=== PATIENT | female | born 1995 | race Caucasian/White ===

== ENCOUNTER → 2024-01-28 12:39 | Outpatient (CLI) | payer OTHER, MEDICAID, SELFPAY ==
[2024-01-28 13:22] LABS: Appearance Urine UA CLEAR; Bilirubin Urine UA NEGATIVE (NEGATIVE); Color Urine UA YELLOW; Glucose Urine UA NEGATIVE (Negative); Ketones Urine UA NEGATIVE (NEGATIVE); Leukocyte Esterase Urine UA 1+ (NEGATIVE); Nitrite Urine UA NEGATIVE (Negative); Occult Blood Urine UA NEGATIVE (Negative); Protein Urine UA NEGATIVE (Negative); Urobilinogen Urine UA 0.2 E.U./dL (0.2)
[2024-01-28 13:33] LABS: Bacteria Urine Occasional (0-1); RBC Urine 1-5/HPF (0-5/HPF); Squamous Epithelial Cell Urine 1-5 /HPF (0-5/HPF); Urine Volume 10mL (spun); WBC Urine 5-10/HPF (0-5/HPF)
[2024-01-28 13:37] LABS: Add Manual Diff / Slide Review NO; Basophils Absolute Auto 0 /uL (0-100); Basophils Percent Auto 0.3 % (0-2); Eosinophils Absolute Auto 200 /uL (0-450); Eosinophils Percent Auto 2.1 % (2-4); Hematocrit 33.8 % (36-46); Hemoglobin 11.1 g/dL (12.0-16.0); Lymphocytes Absolute Auto 1500 /uL (1100-4500); Mean Corpuscular HGB Conc 32.8 % (30-36); Mean Corpuscular Hemoglobin 26.3 PG (26-34); Monocytes Absolute Auto 700 /uL (0-900); Monocytes Percent Auto 7.5 % (3-14); Neutrophils Absolute Auto 7400 /uL (1500-7000); Neutrophils Percent Auto 75.1 % (50-75); Platelet Count 288 X10^3/uL (150-400); Red Blood Cell Count 4.22 X10^6/uL (4.0-5.2); Red Cell Distribution Width 16.4 % (11.6-14.8); White Blood Cell Count 9.9 X10^3/uL (4.5-11.0)
[2024-01-28 17:37] LABS: Hepatitis B Surface Antigen NEGATIVE s/c (NEGATIVE)
[2024-01-28 17:41] LABS: HIV 1 & 2 Ab/Ag 4th Gen Combo NEGATIVE (NEGATIVE); Hep C Virus Ab w/Reflex Quant NEGATIVE s/c (NEGATIVE)
[2024-01-29 05:41] LABS: RPR Screen Non Reactive (Non Reactive)
[2024-01-29 09:36] LABS: Varicella IgG Antibody 1151 index (Immune >165)
== END ==
LOC: LAB 12:41
PROVIDERS: Referring Provider Family Medicine; Visit Provider Family Medicine
DX: Z34.00 Encounter for supervision of normal first pregnancy, unspecified trimester (principal)
CPT/HCPCS: 80055; 81003; 81015; 86787; 86803; 86850; 86900; 86901; 87086; 87389

== ENCOUNTER → 2024-03-24 11:18 | Outpatient (CLI) | payer OTHER, MEDICAID, SELFPAY | PROVIDERS: Referring Provider Family Medicine; Visit Provider Family Medicine | DX: Z78.9 Other specified health status (principal) | CPT/HCPCS: 87210 ==

== ENCOUNTER → 2024-03-24 11:49 | Outpatient (CLI) | payer OTHER, MEDICAID, SELFPAY ==
[2024-03-26 21:07] LABS: AFP, Serum 34.4 ng/mL (.); Calc Gestational Age EDD (.); Estriol, Free 1.05 ng/mL (.); Inhibin A, Dimeric 124.15 pg/mL (.); Inhibin A, MoM 0.81 (.); Maternal Ethnicity Caucasian (.); Maternal Weight 165 lbs (.); Number of Fetuses No (.); OSBR Risk 1 IN 10000 (.); Results Report (.); Test Results *Screen Negative* (.); hCG, MoM 0.67 (.); hCG, Serum 21581 mIU/mL (.)
== END ==
PROVIDERS: Referring Provider Family Medicine; Visit Provider Family Medicine
DX: Z34.00 Encounter for supervision of normal first pregnancy, unspecified trimester (principal); Z78.9 Other specified health status
CPT/HCPCS: 36415; 82105; 82677; 84702; 86336; 87210

== ENCOUNTER → 2024-04-07 10:21 | Outpatient (CLI) | payer OTHER, MEDICAID, SELFPAY ==
--- NOTE | 2024-04-07 10:23 | DI.US.S_ITS ---
PROCEDURE: US OB >= 14 WEEKS FETUS INDICATIONS: anatomy OUTSIDE/PRIOR DATING DATA: LMP-based estimated date of delivery (LESLY): 08/27/2024. First dating scan (date and location): 01/28/2024. Estimated date of delivery (LESLY) from first dating scan: 09/02/2024. The calculations are made using the working LESLY of 09/02/2024. TECHNIQUE: Real-time scanning was performed of the fetus, with image documentation and biometric measurements. Endovaginal scanning: No COMPARISON: None. FINDINGS: General: A single living intrauterine gestation is present. Presentation: Breech. Placenta: Placental position is anterior , without previa. Amniotic fluid index: 6.2 cm, normal range is 5-24 cm. Single deepest vertical pocket is 5.6 cm. heart rate: 145 beats per minute. Maternal cervical canal: 3.3 cm long. Normal lower limit is 2.5 cm. biometrics: Biparietal diameter: 4.6 cm, 20 week 0 day Head circumference: 16.8 cm, 19 week 3 day Abdominal circumference: 15.4 cm, 20 week 4 day Femur length: 2.9 cm, 18 week 5 day Clinically estimated gestational age: 18 week 6 day Composite gestational age from present scan: 19 week 5 day Estimated weight and percentile: 3 in 10 g, 91 percentile Anatomic survey: Neuro: Ventricles are non-dilated at less than 10 mm. Cisterna magna is normal at 3-11 mm. Cerebellum is normal in size and morphology. Nuchal skin fold: Normal at less than 6 mm between 14-21 weeks gestational age. Face: Nose and lips, facial profile are normal. Spine: No evidence for spina bifida. Heart: 4-chambered heart is present, with normal ventricular outflow tracts. Diaphragm: Diaphragm is intact. Stomach: Left-sided stomach is present. Kidneys: No hydronephrosis. Normal is less than 5 mm in 2nd trimester, less than 7 mm in 3rd trimester. Cord: 3-vessel cord has orthotopic insertion. Bladder: Normal in size. Extremities: All 4 extremities identified. IMPRESSION: Single live intrauterine consistent with 19 week 5 day gestation. Normal anatomic survey Approved by: Constantine Allen M.D. on 04/08/2024 at 11:30
== END ==
PROVIDERS: PCP Family Medicine; Referring Provider Family Medicine; Visit Provider Family Medicine
DX: Z34.02 Encounter for supervision of normal first pregnancy, second trimester (principal); Z3A.19 19 weeks gestation of pregnancy
CPT/HCPCS: 76811

== ENCOUNTER → 2024-04-25 10:08 | Outpatient (CLI) | payer OTHER, MEDICAID, SELFPAY ==
[2024-04-25 13:02] LABS: GTT (PREG) 1 Hour PP 50gm Dose 84 mg/dL (76-139)
== END ==
PROVIDERS: PCP Family Medicine; Referring Provider Family Medicine; Visit Provider Family Medicine
DX: Z34.00 Encounter for supervision of normal first pregnancy, unspecified trimester (principal)
CPT/HCPCS: 36415; 82950

== ENCOUNTER 2024-05-14 10:45 | Observation (INO) | payer OTHER, SELFPAY ==
--- NOTE | 2024-05-14 11:31 | DI.US.S_ITS ---
PROCEDURE: US OB LIMITED INDICATIONS: BLEEDING, CRAMPING OUTSIDE/PRIOR DATING DATA: Last menstrual period (LMP): Not available LMP-based estimated date of delivery (LESLY): 08/27/2024 First dating scan (date and location): 01/28/2024 Estimated date of delivery (LESLY) from first dating scan: 09/02/2024 The calculations are made using the working LESLY of 09/02/2024. TECHNIQUE: Real-time scanning was performed of the fetus for biophysical profile, with image documentation. Endovaginal scanning: Not performed COMPARISON: Located within [facility], OB >= 14 WEEKS FETUS, 04/07/2024, 10:28. FINDINGS: General: A single living intrauterine gestation is present. Presentation: Vertex Placenta: Placental position is anterior, without previa. Amniotic fluid index: 14.5 cm, normal range is 5-24 cm. Single deepest vertical pocket is 5.4 cm. heart rate: 155 beats per minute. Maternal cervical canal: Closed and measures 4.1 cm long. Normal lower limit is 2.5 cm. Clinically estimated gestational age: 24 weeks, 1 day. IMPRESSION: 1. Single live intrauterine gestation with fetus in vertex presentation. heart rate is 155 beats per minute. Normal ADAM at 14.5 cm. 2. Placenta location is anterior, no placenta previa. No evidence of abruption. We strive to produce accurate, complete, and clear reports of imaging services. To assist us in improving patient care, this report was composed using standard report templates and voice recognition software. Therefore, it may contain abnormal punctuation, insertions and/or omissions. Occasional wrong-word or sound-alike substitutions may occur. Though we review the report and make efforts to correct it, we do recommend that the report be read carefully in proper context to recognize any text inaccuracies. Dictated by: Son Chery M.D. on 05/14/2024 at 12:17 Approved by: Son Chery M.D. on 05/14/2024 at 12:19
[2024-05-14 12:17] LABS: Appearance Urine UA CLEAR; Bilirubin Urine UA NEGATIVE (NEGATIVE); Color Urine UA YELLOW; Glucose Urine UA NEGATIVE (Negative); Ketones Urine UA NEGATIVE (NEGATIVE); Leukocyte Esterase Urine UA 1+ (NEGATIVE); Nitrite Urine UA NEGATIVE (Negative); Occult Blood Urine UA 3+ (Negative); Protein Urine UA NEGATIVE (Negative); Specific Gravity Urine UA 1.015 (1.000-1.035); Urobilinogen Urine UA 0.2 E.U./dL (0.2)
[2024-05-14 12:28] LABS: pH Urine UA 7.5 (4.5-8.0)
[2024-05-14 12:33] LABS: Bacteria Urine Few (2-10); Culture Indicated Urine Specimen Cultured; RBC Urine 10-30/HPF (0-5/HPF); Squamous Epithelial Cell Urine 1-5 /HPF (0-5/HPF); Urine Volume 10mL (spun); WBC Urine 1-5/HPF (0-5/HPF)
== END 2024-05-14 13:03 | disposition home or self-care (01) ==
PROVIDERS: Admitting Provider Family Medicine; PCP Family Medicine; Referring Provider Family Medicine; Visit Provider Family Medicine
DX: O46.92 Antepartum hemorrhage, unspecified, second trimester (principal); Z3A.24 24 weeks gestation of pregnancy
CPT/HCPCS: 59025; 76815; 81001; 87077; 87086; 87147; G0378; G0379

== ENCOUNTER → 2024-05-30 10:48 | Outpatient (CLI) | payer OTHER, SELFPAY | PROVIDERS: PCP Family Medicine; Visit Provider Family Medicine | DX: R39.9 Unspecified symptoms and signs involving the genitourinary system (principal) | CPT/HCPCS: 87086 ==

== ENCOUNTER → 2024-06-20 11:36 | Outpatient (CLI) | payer OTHER, SELFPAY ==
[2024-06-20 13:25] LABS: GTT (PREG) 1 Hour PP 50gm Dose 113 mg/dL (76-139)
== END ==
LOC: LAB 11:37
PROVIDERS: Family Provider Family Medicine; PCP Family Medicine; Referring Provider Family Medicine; Visit Provider Family Medicine
DX: Z34.00 Encounter for supervision of normal first pregnancy, unspecified trimester (principal)
CPT/HCPCS: 36415; 82950

== ENCOUNTER → 2024-07-14 10:45 | Outpatient (RCR) | payer OTHER, SELFPAY ==
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
--- NOTE | 2024-06-18 10:43 | PT.OTN ---
Current Diagnoses Stiffness of right hip, not elsewhere classified (06/18/24) Stiffness of left hip, not elsewhere classified (06/18/24) Low back pain, unspecified (06/18/24) Other abnormalities of gait and mobility (06/18/24) Weakness (06/18/24) Physical Therapy Treatment Note PT-OP-A Visit Information Start: 06/16/24 10:44 Freq: Status: Active Protocol: Document 06/18/24 09:51 NM (Rec: 06/18/24 10:42 NM [id number]) Out-Patient Physical Therapy Visit Information Visit Information Visit Type Treatment Note Visit Note 24 visits Visit Start Time 09:51 Visit Stop Time 10:30 Visit Number 07/14 Evaluation Information Evaluation Date 06/16/24 Precautions Precautions 3rd trimester of - minimize time in supine and monitor for symptoms, no modalities except tape, use pillow PT-OP-B Current Condition Start: 06/16/24 10:44 Freq: Status: Active Protocol: Document 06/16/24 10:45 NM (Rec: 06/16/24 11:34 NM [id number]) Current Condition History of Current Condition History of Current Condition Pt is in her 3rd trimester, 28 -29 weeks. She is having sciatic type pain B but R>L. She has hx of lower back pain, reports that it is very debilitating. She reports that her pain flares intermittently, states not as active as she should be, partially due to pain and also due to fatigue. 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 This is her first , planning natural . Her back has been bothering her last month and half. Recently switched out mattresses to a firmer mattress, using a pillow. Pt reports shooting sharp pain, BLE to mid thighs; no numbness/tingling. Baby is sitting low, 91st percentile. Pt reports pubic symphysis, sit bone pain. Hx of self manipulation, chiropractor; has not been doing since PT-OP-C Subjective Start: 06/16/24 10:44 Freq: Status: Active Protocol: Document 06/18/24 09:51 NM (Rec: 06/18/24 10:42 NM [id number]) OP-PT Subjective Patient Comments Patient Comments Pt reports that exercises help . She reports a lot of pain last night at R sit bone. PT-OP-F Manual Assessment Start: 06/16/24 10:44 Freq: Status: Active Protocol: Document 06/16/24 10:45 NM (Rec: 06/16/24 14:29 NM [id number]) Manual Assessments Soft Tissue Assessment Soft Tissue Mobility Assessment Increased restrictions of hip flexors, R hamstring length Joint Mobility Assessment Joint Mobility Assessment Hypermobility of SIJ, hypermobility of lumbar spine Decreased hip mobility R>L PT-OP-G Mobility & Gait Start: 06/16/24 10:44 Freq: Status: Active Protocol: Document 06/16/24 10:45 NM (Rec: 06/16/24 14:29 NM [id number]) OP Gait Assessment Gait Distance (Feet) 150 Comments Gait Comments Demos wide based gait, forward trunk posture and forward COG PT-OP-J Posture/Palpation/Skin Start: 06/16/24 10:44 Freq: Status: Active Protocol: Document 06/16/24 10:45 NM (Rec: 06/16/24 15:57 NM [id number]) Posture Evaluation Position Standing Head/C-Spine Posture Forward Head L-Spine Posture Increased Lordosis Shoulder Posture (L) Rounded,(R) Rounded Pelvis Posture Anteriorly Tilted Hip Posture (L) Externally Rotated,(R) Externally Rotated Comments Posture Comments B knee hyperextension forward center of mass Palpation Assessment Location hips Palpation Details Mild tenderness along pubic symphysis especially toward L side, does not feel deviated Mild glute tenderness R>L, R hamstring No hip flexor tenderness but tight lumbar spine Palpation Details Tenderness and tightness along paraspinals No tenderness along spinous processes, coccyx Tenderness along B SIJ R>L, R ischial tuberosity PT-OP-K Range of Motion Start: 06/16/24 10:44 Freq: Status: Active Protocol: Document 06/16/24 10:45 NM (Rec: 06/16/24 11:34 NM [id number]) Lumbar Spine Range of Motion Lumbar Spine Active Percentage Testing Position Standing Flexion 90 Extension 25 Rotation Left 100 Rotation Right 100 Lateral Flexion Left 100 Lateral Flexion Right 100 Comments pain with flex, ext, rotation R>L Hip Goniometric Range of Motion Hip Right Internal Rotation 35 External Rotation 30 Comments pain with IR limited HS length Left Internal Rotation 35 External Rotation 35 PT-OP-L Special Tests Start: 06/16/24 10:44 Freq: Status: Active Protocol: Document 06/16/24 10:45 NM (Rec: 06/16/24 11:34 NM [id number]) Special Tests Lumbar Spine Special Tests Straight Leg Raise Test Results + Comments B Slump Test Results + Comments R Prone Instability Test Test Results + Comments improved with stabilization PT-OP-M Strength Start: 06/16/24 10:44 Freq: Status: Active Protocol: Document 06/16/24 10:45 NM (Rec: 06/16/24 11:34 NM [id number]) Trunk Strength Trunk Manual Muscle Testing Comments TrA activation present but challenging to maintain Hip Strength Hip Manual Muscle Testing Right Flexion (L2) 3+ Fair+ Extension (S1) 4- Good- Abduction 4- Good- Adduction 4- Good- External Rotation 3+ Fair+ Internal Rotation 3+ Fair+ Comments pain with flex, IR, add, abd Left Flexion (L2) 4- Good- Extension (S1) 3+ Fair+ Abduction 4- Good- Adduction 3+ Fair+ External Rotation 4- Good- Internal Rotation 4- Good- Comments min pain IR Knee Strength Knee Manual Muscle Testing Right Flexion (S2) 4 Good Extension (L3) 4 Good Left Flexion (S2) 4 Good Extension (L3) 4 Good PT-OP-Q Treatments Start: 06/16/24 10:44 Freq: Status: Active Protocol: Document 06/18/24 09:51 NM (Rec: 06/18/24 10:42 NM [id number]) Therapeutic Exercises Sitting Exercises hamstring stretch Side bilateral Equipment Used heel propped on ground, slight trunk lean Reps/Minutes 2x60 ea Comments cued for knee ext but not locked out hip flexor stretch Sitting Exercise Name on chair with post pelvic tilt - HEP Side bilateral Equipment Used BIG chair for carryover at home Reps/Minutes 2x30 ea Comments cued diaphragmatic breathing Standing Exercises calf stretch Standing Exercise Name 1. gastrocnemius, 2. soleus- HEP Side bilateral Reps/Minutes 60 ea Comments feels more on R side than L Manual Therapy Treatment Consent Patient gave verbal consent for manual Yes treatment Soft Tissue Mobilization hips Body Location glutes, HS Mobilization Type Rolling,Strumming,Sustained Pressure Intensity/Depth Superficial Body Position Prone Comments Positioned on pillow . Superficial only. Increased restrictions R>L. Trigger points especially on R hamstring near ischial tuberosity. Reduced tension with mobilization lumbar spine Body Location paraspinals Mobilization Type Rolling,Strumming Intensity/Depth Superficial Body Position Prone Comments Positioned on pillow . Superficial only. Increased tightness along paraspinals R> L. Reduced tension with mobilization Self-Care/Home Management Treatment Education Patient Education Body Mechanics,Joint Protection,Pain Management, Posture Other Education 9 minutes- handout and education provided on anatomical changes with , transverse abdominus, do's/don' t's with body mechanics PT-OP-T Assessment and Plan Start: 06/16/24 10:44 Freq: Status: Active Protocol: Document 06/18/24 09:51 NM (Rec: 06/18/24 10:42 NM [id number]) Physical Therapy Assessment Goals Three Impairment not performing HEP Short Term Goal (STG) Pt will be educated on HEP for symptom management 06/18/24: HEP initiated STG Duration 2 weeks MET [employer] Equipment Mechanic Goal (LTG) Pt will be IND with HEP for symptom management at least 3x /wk LTG Duration 6 weeks Two Impairment pain with lifting, ADLs Short Term Goal (STG) Pt will be educated on activity modification and postural modification to improve pain management during remainder of 06/18/24: handout provided; education initiated posture and activity modification STG Duration 3 weeks MET [employer] Equipment Mechanic Goal (LTG) Pt will be educated and be able to demonstrate lifting/ carrying at least 5 reps/20 ft carseat or similar object for carryover following LTG Duration 6 weeks One Impairment limited TrA, hip strength Short Term Goal (STG) Pt will be able to demonstrate TrA activation at least 5/10 reps in order to demonstrate improved core stabilization for pain management and pelvic floor control STG Duration 4 weeks Assessment Summary Assessment Pt reports significant decrease in pain at end of session. No number provided. Increased restrictions of R hamstrings/glutes compared to L side. Improved pain management with manual treatment. Initiated stretching routine to assist with symptom management to improve flexibility. Cueing needed to prevent knee hyperextension. Education provided for activity modification and postural education. Pt would continue to benefit from skilled PT for progressive flexibility, strengthening, and body mechanics training to improve symptom management. Physical Therapy Plan Frequency and Duration Frequency of Treatment 2x/Week Duration of treatment (weeks) 6 Plan of Care Start Date 06/16/24 Plan of Care End Date 08/01/24 Therapeutic Interventions Therapeutic Interventions Gait Training,Home Exercise Program,Joint Mobilizations, Manual Therapy,Neuromuscular Re-education,Orthotic/ Prosthetic Management,Patient/ Caregiver Education,Self-Care/ Home Management,Soft Tissue Mobilization,Taping, Therapeutic Activities, Therapeutic Exercises Other Therapeutic Interventions no modalities Next Visit Focus/Plan Next Note Type Treatment Note Next Visit Plan SIJ belt- researched last session Quadruped. Initiate core bracing on ball vs seated. limit supine position. Hip stretching and HS/calf stretching as tolerated in modified position, quadruped vs standing. Quadruped mobility, core bracing, and hip strengthening. Education/handouts on , body mechanics
--- NOTE | 2024-06-23 12:15 | PT.OTN ---
Current Diagnoses Stiffness of right hip, not elsewhere classified (06/23/24) Stiffness of left hip, not elsewhere classified (06/23/24) Low back pain, unspecified (06/23/24) Other abnormalities of gait and mobility (06/23/24) Weakness (06/23/24) Physical Therapy Treatment Note PT-OP-A Visit Information Start: 06/16/24 10:44 Freq: Status: Active Protocol: Document 06/23/24 09:03 NM (Rec: 06/23/24 12:15 NM [id number]) Out-Patient Physical Therapy Visit Information Visit Information Visit Type Treatment Note Visit Note 24 visits Visit Start Time 09:03 Visit Stop Time 09:45 Visit Number 08/11 Evaluation Information Evaluation Date 06/16/24 Precautions Precautions 3rd trimester of - minimize time in supine and monitor for symptoms, no modalities except tape, use pillow PT-OP-B Current Condition Start: 06/16/24 10:44 Freq: Status: Active Protocol: Document 06/16/24 10:45 NM (Rec: 06/16/24 11:34 NM [id number]) Current Condition History of Current Condition History of Current Condition Pt is in her 3rd trimester, 28 -29 weeks. She is having sciatic type pain B but R>L. She has hx of lower back pain, reports that it is very debilitating. She reports that her pain flares intermittently, states not as active as she should be, partially due to pain and also due to fatigue. 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 This is her first , planning natural . Her back has been bothering her last month and half. Recently switched out mattresses to a firmer mattress, using a pillow. Pt reports shooting sharp pain, BLE to mid thighs; no numbness/tingling. Baby is sitting low, 91st percentile. Pt reports pubic symphysis, sit bone pain. Hx of self manipulation, chiropractor; has not been doing since PT-OP-C Subjective Start: 06/16/24 10:44 Freq: Status: Active Protocol: Document 06/23/24 09:03 NM (Rec: 06/23/24 12:15 NM [id number]) OP-PT Subjective Patient Comments Patient Comments Pt went to [place] over weekend, so in car for long periods of time; did not make her leg feel very good. Also went to a play with very small chair and very cramped, so RLE more angry. PT-OP-F Manual Assessment Start: 06/16/24 10:44 Freq: Status: Active Protocol: Document 06/16/24 10:45 NM (Rec: 06/16/24 14:29 NM [id number]) Manual Assessments Soft Tissue Assessment Soft Tissue Mobility Assessment Increased restrictions of hip flexors, R hamstring length Joint Mobility Assessment Joint Mobility Assessment Hypermobility of SIJ, hypermobility of lumbar spine Decreased hip mobility R>L PT-OP-G Mobility & Gait Start: 06/16/24 10:44 Freq: Status: Active Protocol: Document 06/16/24 10:45 NM (Rec: 06/16/24 14:29 NM [id number]) OP Gait Assessment Gait Distance (Feet) 150 Comments Gait Comments Demos wide based gait, forward trunk posture and forward COG PT-OP-J Posture/Palpation/Skin Start: 06/16/24 10:44 Freq: Status: Active Protocol: Document 06/16/24 10:45 NM (Rec: 06/16/24 15:57 NM [id number]) Posture Evaluation Position Standing Head/C-Spine Posture Forward Head L-Spine Posture Increased Lordosis Shoulder Posture (L) Rounded,(R) Rounded Pelvis Posture Anteriorly Tilted Hip Posture (L) Externally Rotated,(R) Externally Rotated Comments Posture Comments B knee hyperextension forward center of mass Palpation Assessment Location hips Palpation Details Mild tenderness along pubic symphysis especially toward L side, does not feel deviated Mild glute tenderness R>L, R hamstring No hip flexor tenderness but tight lumbar spine Palpation Details Tenderness and tightness along paraspinals No tenderness along spinous processes, coccyx Tenderness along B SIJ R>L, R ischial tuberosity PT-OP-K Range of Motion Start: 06/16/24 10:44 Freq: Status: Active Protocol: Document 06/16/24 10:45 NM (Rec: 06/16/24 11:34 NM [id number]) Lumbar Spine Range of Motion Lumbar Spine Active Percentage Testing Position Standing Flexion 90 Extension 25 Rotation Left 100 Rotation Right 100 Lateral Flexion Left 100 Lateral Flexion Right 100 Comments pain with flex, ext, rotation R>L Hip Goniometric Range of Motion Hip Right Internal Rotation 35 External Rotation 30 Comments pain with IR limited HS length Left Internal Rotation 35 External Rotation 35 PT-OP-L Special Tests Start: 06/16/24 10:44 Freq: Status: Active Protocol: Document 06/16/24 10:45 NM (Rec: 06/16/24 11:34 NM [id number]) Special Tests Lumbar Spine Special Tests Straight Leg Raise Test Results + Comments B Slump Test Results + Comments R Prone Instability Test Test Results + Comments improved with stabilization PT-OP-M Strength Start: 06/16/24 10:44 Freq: Status: Active Protocol: Document 06/16/24 10:45 NM (Rec: 06/16/24 11:34 NM [id number]) Trunk Strength Trunk Manual Muscle Testing Comments TrA activation present but challenging to maintain Hip Strength Hip Manual Muscle Testing Right Flexion (L2) 3+ Fair+ Extension (S1) 4- Good- Abduction 4- Good- Adduction 4- Good- External Rotation 3+ Fair+ Internal Rotation 3+ Fair+ Comments pain with flex, IR, add, abd Left Flexion (L2) 4- Good- Extension (S1) 3+ Fair+ Abduction 4- Good- Adduction 3+ Fair+ External Rotation 4- Good- Internal Rotation 4- Good- Comments min pain IR Knee Strength Knee Manual Muscle Testing Right Flexion (S2) 4 Good Extension (L3) 4 Good Left Flexion (S2) 4 Good Extension (L3) 4 Good PT-OP-Q Treatments Start: 06/16/24 10:44 Freq: Status: Active Protocol: Document 06/23/24 09:03 NM (Rec: 06/23/24 12:15 NM [id number]) Therapeutic Exercises Sidelying Exercises happy baby Sidelying Exercise Name modified into sidelying for safety Side bilateral Equipment Used edu can be supine for short periods at home if monitor symptoms Reps/Minutes 60 ea Comments cued hand position; Sitting Exercises nerve glide Sitting Exercise Name sciatic nerve: ankle > knee > c/ head movement Side right Reps/Minutes 10 ea Comments kick your head, no symptom increase Standing Exercises modified pigeon Standing Exercise Name sitting on edge of plinth: HEP Side bilateral Reps/Minutes 60 ea Comments more restricted on R; no inc pain Other Exercises quadruped Other Exercise Name 1. tail wags, 2. catcamel, 3. rockbacks ER/IR, 4. TrA activation Equipment Used verbal tactile cues for TrA contraction Reps/Minutes 10 ea Comments monitored for pain; good feedback for position; TrA challenging Manual Therapy Treatment Consent Patient gave verbal consent for manual Yes treatment Soft Tissue Mobilization hips Body Location glutes, HS, calf, adductors Mobilization Type Rolling,Strumming,Sustained Pressure Intensity/Depth Superficial Body Position Prone Comments Positioned on pillow . Superficial only. Distal > proximal. Increased restrictions R>L. Trigger points especially on R hamstring near ischial tuberosity, less today than last session. Reduced tension with mobilization lumbar spine Body Location paraspinals Mobilization Type Rolling,Strumming Intensity/Depth Superficial Body Position Prone Comments Positioned on pillow . Superficial only. Increased tightness along paraspinals R> L. Reduced tension with mobilization Taping lumbar spine-SIJ Body Location SIJ > thoracolumbar spine Type of Tape Kinesio Tape Skin Inspection intact, clear Comments Distal > proximal for SIJ-low back support. 2 I strips with <50% tension parallel to spine (2 horizontal I strips at near thoracic spine to hold tape in position). Education to keep on 3-5 days, remove sooner if rash, irritation, redness, or other symptoms occur. PT-OP-T Assessment and Plan Start: 06/16/24 10:44 Freq: Status: Active Protocol: Document 06/23/24 09:03 NM (Rec: 06/23/24 12:15 NM [id number]) Physical Therapy Assessment Goals Three Impairment not performing HEP Short Term Goal (STG) Pt will be educated on HEP for symptom management 06/18/24: HEP initiated STG Duration 2 weeks MET Maintenance Porter Goal (LTG) Pt will be IND with HEP for symptom management at least 3x /wk LTG Duration 6 weeks Two Impairment pain with lifting, ADLs Short Term Goal (STG) Pt will be educated on activity modification and postural modification to improve pain management during remainder of 06/18/24: handout provided; education initiated posture and activity modification STG Duration 3 weeks MET Maintenance Porter Goal (LTG) Pt will be educated and be able to demonstrate lifting/ carrying at least 5 reps/20 ft carseat or similar object for carryover following LTG Duration 6 weeks One Impairment limited TrA, hip strength Short Term Goal (STG) Pt will be able to demonstrate TrA activation at least 5/10 reps in order to demonstrate improved core stabilization for pain management and pelvic floor control STG Duration 4 weeks Assessment Summary Assessment Pt continues to have significant reduction in pain levels with manual treatment and therapeutic exercise. Trialed quadruped position for hip mobility and to initiate core strength. Max cues for deep core activation; will continue to address in future sessions to promote better trunk stabilization. Good feedback to modified stretching with education on safety depending on position. Good relief with taping at end of session until pt SIJ belt arrives. Pt would continue to benefit from skilled PT for pain management. Physical Therapy Plan Frequency and Duration Frequency of Treatment 2x/Week Duration of treatment (weeks) 6 Plan of Care Start Date 06/16/24 Plan of Care End Date 08/01/24 Therapeutic Interventions Therapeutic Interventions Gait Training,Home Exercise Program,Joint Mobilizations, Manual Therapy,Neuromuscular Re-education,Orthotic/ Prosthetic Management,Patient/ Caregiver Education,Self-Care/ Home Management,Soft Tissue Mobilization,Taping, Therapeutic Activities, Therapeutic Exercises Other Therapeutic Interventions no modalities Next Visit Focus/Plan Next Note Type Treatment Note Next Visit Plan Fit SIJ belt. Assess mony for tape. Cont with TrA in quad vs seated. Quadruped. Initiate core bracing on ball vs seated. limit supine position. Hip stretching and HS/calf stretching as tolerated in modified position, quadruped vs standing. Quadruped mobility, core bracing, and hip strengthening. Education/handouts on , body mechanics
--- NOTE | 2024-06-25 12:57 | PT.OTN ---
Current Diagnoses Stiffness of right hip, not elsewhere classified (06/25/24) Stiffness of left hip, not elsewhere classified (06/25/24) Low back pain, unspecified (06/25/24) Other abnormalities of gait and mobility (06/25/24) Weakness (06/25/24) Physical Therapy Treatment Note PT-OP-A Visit Information Start: 06/16/24 10:44 Freq: Status: Active Protocol: Document 06/25/24 10:41 NM (Rec: 06/25/24 11:32 NM [id number]) Out-Patient Physical Therapy Visit Information Visit Information Visit Type Treatment Note Visit Note 24 visits Visit Start Time 10:47 Visit Stop Time 11:27 Visit Number 09/11 Evaluation Information Evaluation Date 06/16/24 Precautions Precautions 3rd trimester of - minimize time in supine and monitor for symptoms of SOB, no modalities except tape, use pillow PT-OP-B Current Condition Start: 06/16/24 10:44 Freq: Status: Active Protocol: Document 06/16/24 10:45 NM (Rec: 06/16/24 11:34 NM [id number]) Current Condition History of Current Condition History of Current Condition Pt is in her 3rd trimester, 28 -29 weeks. She is having sciatic type pain B but R>L. She has hx of lower back pain, reports that it is very debilitating. She reports that her pain flares intermittently, states not as active as she should be, partially due to pain and also due to fatigue. 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 This is her first , planning natural . Her back has been bothering her last month and half. Recently switched out mattresses to a firmer mattress, using a pillow. Pt reports shooting sharp pain, BLE to mid thighs; no numbness/tingling. Baby is sitting low, 91st percentile. Pt reports pubic symphysis, sit bone pain. Hx of self manipulation, chiropractor; has not been doing since PT-OP-C Subjective Start: 06/16/24 10:44 Freq: Status: Active Protocol: Document 06/25/24 10:41 NM (Rec: 06/25/24 11:32 NM [id number]) OP-PT Subjective Patient Comments Patient Comments Pt reports that her L side is bothering her a little more today. She reports that she was stretching a little more today, thinks overstretch. PT-OP-F Manual Assessment Start: 06/16/24 10:44 Freq: Status: Active Protocol: Document 06/16/24 10:45 NM (Rec: 06/16/24 14:29 NM [id number]) Manual Assessments Soft Tissue Assessment Soft Tissue Mobility Assessment Increased restrictions of hip flexors, R hamstring length Joint Mobility Assessment Joint Mobility Assessment Hypermobility of SIJ, hypermobility of lumbar spine Decreased hip mobility R>L PT-OP-G Mobility & Gait Start: 06/16/24 10:44 Freq: Status: Active Protocol: Document 06/16/24 10:45 NM (Rec: 06/16/24 14:29 NM [id number]) OP Gait Assessment Gait Distance (Feet) 150 Comments Gait Comments Demos wide based gait, forward trunk posture and forward COG PT-OP-J Posture/Palpation/Skin Start: 06/16/24 10:44 Freq: Status: Active Protocol: Document 06/16/24 10:45 NM (Rec: 06/16/24 15:57 NM [id number]) Posture Evaluation Position Standing Head/C-Spine Posture Forward Head L-Spine Posture Increased Lordosis Shoulder Posture (L) Rounded,(R) Rounded Pelvis Posture Anteriorly Tilted Hip Posture (L) Externally Rotated,(R) Externally Rotated Comments Posture Comments B knee hyperextension forward center of mass Palpation Assessment Location hips Palpation Details Mild tenderness along pubic symphysis especially toward L side, does not feel deviated Mild glute tenderness R>L, R hamstring No hip flexor tenderness but tight lumbar spine Palpation Details Tenderness and tightness along paraspinals No tenderness along spinous processes, coccyx Tenderness along B SIJ R>L, R ischial tuberosity PT-OP-K Range of Motion Start: 06/16/24 10:44 Freq: Status: Active Protocol: Document 06/16/24 10:45 NM (Rec: 06/16/24 11:34 NM [id number]) Lumbar Spine Range of Motion Lumbar Spine Active Percentage Testing Position Standing Flexion 90 Extension 25 Rotation Left 100 Rotation Right 100 Lateral Flexion Left 100 Lateral Flexion Right 100 Comments pain with flex, ext, rotation R>L Hip Goniometric Range of Motion Hip Right Internal Rotation 35 External Rotation 30 Comments pain with IR limited HS length Left Internal Rotation 35 External Rotation 35 PT-OP-L Special Tests Start: 06/16/24 10:44 Freq: Status: Active Protocol: Document 06/16/24 10:45 NM (Rec: 06/16/24 11:34 NM [id number]) Special Tests Lumbar Spine Special Tests Straight Leg Raise Test Results + Comments B Slump Test Results + Comments R Prone Instability Test Test Results + Comments improved with stabilization PT-OP-M Strength Start: 06/16/24 10:44 Freq: Status: Active Protocol: Document 06/16/24 10:45 NM (Rec: 06/16/24 11:34 NM [id number]) Trunk Strength Trunk Manual Muscle Testing Comments TrA activation present but challenging to maintain Hip Strength Hip Manual Muscle Testing Right Flexion (L2) 3+ Fair+ Extension (S1) 4- Good- Abduction 4- Good- Adduction 4- Good- External Rotation 3+ Fair+ Internal Rotation 3+ Fair+ Comments pain with flex, IR, add, abd Left Flexion (L2) 4- Good- Extension (S1) 3+ Fair+ Abduction 4- Good- Adduction 3+ Fair+ External Rotation 4- Good- Internal Rotation 4- Good- Comments min pain IR Knee Strength Knee Manual Muscle Testing Right Flexion (S2) 4 Good Extension (L3) 4 Good Left Flexion (S2) 4 Good Extension (L3) 4 Good PT-OP-Q Treatments Start: 06/16/24 10:44 Freq: Status: Active Protocol: Document 06/25/24 10:41 NM (Rec: 06/25/24 11:32 NM [id number]) Therapeutic Exercises Sitting Exercises kittitian ball Sitting Exercise Name 1. hip circles, 2. TrA activation, 3. c/ hip flex, 4. c/ hip abd on slider Side bilateral Reps/Minutes 1. 3 min, 2. 8 min, 3. 8 ea, 4 . 15 ea Comments cued form, breathing; increased time spent on TrA activation Standing Exercises calf stretch Side bilateral Resistance ANGELICA Reps/Minutes 2x60 ea Manual Therapy Treatment Consent Patient gave verbal consent for manual Yes treatment Soft Tissue Mobilization hips Body Location glutes, HS, calf Mobilization Type Rolling,Strumming,Sustained Pressure Intensity/Depth Superficial Body Position Prone Comments Positioned on pillow . Superficial only. Distal > proximal. Increased restrictions R < L today. Trigger points especially on R hamstring near ischial tuberosity, less today than last session. Increased tension L side. Reduced tension with mobilization lumbar spine Body Location paraspinals Mobilization Type Rolling,Strumming Intensity/Depth Superficial Body Position Prone Comments Positioned on pillow . Superficial only. Increased tightness along paraspinals R> L. Reduced tension with mobilization PT-OP-T Assessment and Plan Start: 06/16/24 10:44 Freq: Status: Active Protocol: Document 06/25/24 10:41 NM (Rec: 06/25/24 11:32 NM [id number]) Physical Therapy Assessment Goals Three Impairment not performing HEP Short Term Goal (STG) Pt will be educated on HEP for symptom management 06/18/24: HEP initiated STG Duration 2 weeks MET Retirement Goal (LTG) Pt will be IND with HEP for symptom management at least 3x /wk LTG Duration 6 weeks Two Impairment pain with lifting, ADLs Short Term Goal (STG) Pt will be educated on activity modification and postural modification to improve pain management during remainder of 06/18/24: handout provided; education initiated posture and activity modification STG Duration 3 weeks MET Retirement Goal (LTG) Pt will be educated and be able to demonstrate lifting/ carrying at least 5 reps/20 ft carseat or similar object for carryover following LTG Duration 6 weeks One Impairment limited TrA, hip strength Short Term Goal (STG) Pt will be able to demonstrate TrA activation at least 5/10 reps in order to demonstrate improved core stabilization for pain management and pelvic floor control STG Duration 4 weeks Assessment Summary Assessment Pt continues to demo difficulty with coordination of contraction and breathwork during deep core activation. Trialed progression for more functional application, but will need to be regressed in meantime until pt able to demo better control during contraction. Increased restrictions of L paraspinals, L hamstring compared to RLE this session. Educated to stretch only to tolerance per recommendations on HEP vs overstretching due to dependence on muscular control over ligamentous control. Pt verbalizes understanding. Tape removed this session. Pt would continue to benefit from skilled PT for progressive mobility and body mechanics training to improve symptom management and ability to perform ADLs/IADLs. Physical Therapy Plan Frequency and Duration Frequency of Treatment 2x/Week Duration of treatment (weeks) 6 Plan of Care Start Date 06/16/24 Plan of Care End Date 08/01/24 Therapeutic Interventions Therapeutic Interventions Gait Training,Home Exercise Program,Joint Mobilizations, Manual Therapy,Neuromuscular Re-education,Orthotic/ Prosthetic Management,Patient/ Caregiver Education,Self-Care/ Home Management,Soft Tissue Mobilization,Taping, Therapeutic Activities, Therapeutic Exercises Other Therapeutic Interventions no modalities Next Visit Focus/Plan Next Note Type Treatment Note Next Visit Plan Fit SIJ belt when arrive. Tape if needed (I strips TSL, trial X I strip support near SIJ). Cont with TrA in quad vs seated. Trial quadruped hip strengthening as able. Cont stretching Education/handouts on , body mechanics as needed
--- NOTE | 2024-07-07 10:35 | PT.OTN ---
Current Diagnoses Stiffness of right hip, not elsewhere classified (07/07/24) Stiffness of left hip, not elsewhere classified (07/07/24) Low back pain, unspecified (07/07/24) Other abnormalities of gait and mobility (07/07/24) Weakness (07/07/24) Physical Therapy Treatment Note PT-OP-A Visit Information Start: 06/16/24 10:44 Freq: Status: Active Protocol: Document 07/07/24 09:50 NM (Rec: 07/07/24 10:35 NM [id number]) Out-Patient Physical Therapy Visit Information Visit Information Visit Type Treatment Note Visit Note 24 visits Visit Start Time 09:50 Visit Stop Time 10:20 Visit Number 12/11 PT-OP-B Current Condition Start: 06/16/24 10:44 Freq: Status: Active Protocol: Document 06/16/24 10:45 NM (Rec: 06/16/24 11:34 NM [id number]) Current Condition History of Current Condition History of Current Condition Pt is in her 3rd trimester, 28 -29 weeks. She is having sciatic type pain B but R>L. She has hx of lower back pain, reports that it is very debilitating. She reports that her pain flares intermittently, states not as active as she should be, partially due to pain and also due to fatigue. 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 This is her first , planning natural . Her back has been bothering her last month and half. Recently switched out mattresses to a firmer mattress, using a pillow. Pt reports shooting sharp pain, BLE to mid thighs; no numbness/tingling. Baby is sitting low, 91st percentile. Pt reports pubic symphysis, sit bone pain. Hx of self manipulation, chiropractor; has not been doing since PT-OP-C Subjective Start: 06/16/24 10:44 Freq: Status: Active Protocol: Document 07/07/24 09:50 NM (Rec: 07/07/24 10:35 NM [id number]) OP-PT Subjective Patient Comments Patient Comments Pt reports better sciatic pain improving. Attributes to pigeon, firehydrant, sciatic mobilization. Taping helped last session; still intact today. Reports last session went well. Has been trying to use glutes more when ambulating. In process of moving into new home; has been doing lots of packing. Focusing more on breathwork and lifting mechanics per last session. Has OB appt at 10:30 , needs to leave at 10:20 to make appt on time. PT-OP-F Manual Assessment Start: 06/16/24 10:44 Freq: Status: Active Protocol: Document 06/16/24 10:45 NM (Rec: 06/16/24 14:29 NM [id number]) Manual Assessments Soft Tissue Assessment Soft Tissue Mobility Assessment Increased restrictions of hip flexors, R hamstring length Joint Mobility Assessment Joint Mobility Assessment Hypermobility of SIJ, hypermobility of lumbar spine Decreased hip mobility R>L PT-OP-G Mobility & Gait Start: 06/16/24 10:44 Freq: Status: Active Protocol: Document 06/16/24 10:45 NM (Rec: 06/16/24 14:29 NM [id number]) OP Gait Assessment Gait Distance (Feet) 150 Comments Gait Comments Demos wide based gait, forward trunk posture and forward COG PT-OP-J Posture/Palpation/Skin Start: 06/16/24 10:44 Freq: Status: Active Protocol: Document 06/16/24 10:45 NM (Rec: 06/16/24 15:57 NM [id number]) Posture Evaluation Position Standing Head/C-Spine Posture Forward Head L-Spine Posture Increased Lordosis Shoulder Posture (L) Rounded,(R) Rounded Pelvis Posture Anteriorly Tilted Hip Posture (L) Externally Rotated,(R) Externally Rotated Comments Posture Comments B knee hyperextension forward center of mass Palpation Assessment Location hips Palpation Details Mild tenderness along pubic symphysis especially toward L side, does not feel deviated Mild glute tenderness R>L, R hamstring No hip flexor tenderness but tight lumbar spine Palpation Details Tenderness and tightness along paraspinals No tenderness along spinous processes, coccyx Tenderness along B SIJ R>L, R ischial tuberosity PT-OP-K Range of Motion Start: 06/16/24 10:44 Freq: Status: Active Protocol: Document 06/16/24 10:45 NM (Rec: 06/16/24 11:34 NM [id number]) Lumbar Spine Range of Motion Lumbar Spine Active Percentage Testing Position Standing Flexion 90 Extension 25 Rotation Left 100 Rotation Right 100 Lateral Flexion Left 100 Lateral Flexion Right 100 Comments pain with flex, ext, rotation R>L Hip Goniometric Range of Motion Hip Right Internal Rotation 35 External Rotation 30 Comments pain with IR limited HS length Left Internal Rotation 35 External Rotation 35 PT-OP-L Special Tests Start: 06/16/24 10:44 Freq: Status: Active Protocol: Document 06/16/24 10:45 NM (Rec: 06/16/24 11:34 NM [id number]) Special Tests Lumbar Spine Special Tests Straight Leg Raise Test Results + Comments B Slump Test Results + Comments R Prone Instability Test Test Results + Comments improved with stabilization PT-OP-M Strength Start: 06/16/24 10:44 Freq: Status: Active Protocol: Document 06/16/24 10:45 NM (Rec: 06/16/24 11:34 NM [id number]) Trunk Strength Trunk Manual Muscle Testing Comments TrA activation present but challenging to maintain Hip Strength Hip Manual Muscle Testing Right Flexion (L2) 3+ Fair+ Extension (S1) 4- Good- Abduction 4- Good- Adduction 4- Good- External Rotation 3+ Fair+ Internal Rotation 3+ Fair+ Comments pain with flex, IR, add, abd Left Flexion (L2) 4- Good- Extension (S1) 3+ Fair+ Abduction 4- Good- Adduction 3+ Fair+ External Rotation 4- Good- Internal Rotation 4- Good- Comments min pain IR Knee Strength Knee Manual Muscle Testing Right Flexion (S2) 4 Good Extension (L3) 4 Good Left Flexion (S2) 4 Good Extension (L3) 4 Good PT-OP-Q Treatments Start: 06/16/24 10:44 Freq: Status: Active Protocol: Document 07/07/24 09:50 NM (Rec: 07/07/24 10:35 NM [id number]) Therapeutic Exercises Sitting Exercises hip IR Sitting Exercise Name added to HEP (no HO provided at pt request) Side bilateral Resistance 1. AROM, 2. level 1 band at feet Equipment Used blue ball btwn knees for hip ADD Reps/Minutes 1. 10x3 hold, 2. 8 Comments improved pain mgmt; cued form Standing Exercises modified pigeon Standing Exercise Name sitting on edge of plinth: HEP review Side bilateral Reps/Minutes 60 ea Comments improved pain management Other Exercises quadruped Other Exercise Name 1. firehydrants, 2.hip ext, 3. hip IR, 4. TrA Equipment Used initially for cueing to limit spine rotation Reps/Minutes 2x5 ea side, ea exercise Comments cued breathwork, form, TrA; improved TrA and breathwork Therapeutic Activity Therapeutic Activity body mechanics Reps/Minutes 15 min Comments 1. standing posture: cueing to limit trunk hyperextension posture, stacking hips/ shoulders as able 2. ambulation: use of glutes, cueing for activation with ambulation to reduce waddling as carryover from last PT session 3. lifting baby carrier: use of crate/gait belt and AROm > 10# wt to simulate lifting baby carrier from floor > plinth 4. carrying baby carrier: use of crate/gait belt and AROm > 10# wt to simulate carrying baby 5. lifting carrier to car: use of crate/gait belt and AROm > 10# wt to simulate lifting to car, then pt provided self cueing for set up Manual Therapy Treatment Consent Patient gave verbal consent for manual Yes treatment Taping lumbar spine-SIJ Body Location SIJ Type of Tape Kinesio Tape Skin Inspection intact, clear Comments 1 I strips, making X across SIJ/low back, no stretch provided. Previous tape removed. Educated to remove in 3-5 days or immediately if skin irritation/rash occurs. PT-OP-T Assessment and Plan Start: 06/16/24 10:44 Freq: Status: Active Protocol: Document 07/07/24 09:50 NM (Rec: 07/07/24 10:35 NM [id number]) Physical Therapy Assessment Goals Three Impairment not performing HEP Short Term Goal (STG) Pt will be educated on HEP for symptom management 06/18/24: HEP initiated STG Duration 2 weeks MET Tools Programmer Goal (LTG) Pt will be IND with HEP for symptom management at least 3x /wk 07/07/24: pt performing HEP daily w/ improved symptom management LTG Duration 6 weeks MET Two Impairment pain with lifting, ADLs Short Term Goal (STG) Pt will be educated on activity modification and postural modification to improve pain management during remainder of 06/18/24: handout provided; education initiated posture and activity modification STG Duration 3 weeks MET Tools Programmer Goal (LTG) Pt will be educated and be able to demonstrate lifting/ carrying at least 5 reps/20 ft carseat or similar object for carryover following 07/07/24: initiated lifting mechanics for baby carrier, carrying baby LTG Duration 6 weeks PROGRESSING 07/07 One Impairment limited TrA, hip strength Short Term Goal (STG) Pt will be able to demonstrate TrA activation at least 5/10 reps in order to demonstrate improved core stabilization for pain management and pelvic floor control 07/07/24: able to perform quadruped TrA activation 5 reps, then carryover for lifting simulated baby carrier STG Duration 4 weeks MET 07/07 Progress Towards Goals Progress Towards Goals Progressing Toward Goals,Goals Met Assessment Summary Assessment Pt continues to respond well to taping for pain management at SIJ. Reviewed quadruped hip strengthening today, added hip IR in quadruped and seated for improved hip strenght and SIJ mobility for future . Less cueing needed for spinal mechanics, core bracing , and form. Follow up to lifting mechanics last session ; simulated use of baby carrier for lifting/carrying with crates. Pt and PT discussed discharge in 2 sessions due to insurance limitations and nearing term. Physical Therapy Plan Frequency and Duration Frequency of Treatment 2x/Week Duration of treatment (weeks) 6 Plan of Care Start Date 06/16/24 Plan of Care End Date 08/01/24 Therapeutic Interventions Therapeutic Interventions Gait Training,Home Exercise Program,Joint Mobilizations, Manual Therapy,Neuromuscular Re-education,Orthotic/ Prosthetic Management,Patient/ Caregiver Education,Self-Care/ Home Management,Soft Tissue Mobilization,Taping, Therapeutic Activities, Therapeutic Exercises Other Therapeutic Interventions no modalities Next Visit Focus/Plan Next Note Type Treatment Note Next Visit Plan Fit SIJ belt when arrive. Tape X I strip support near SIJ). Progress quad vs standing hip strengthening with band. Cont body mechanics with lifting and carrying. Manual tx as needed
--- NOTE | 2024-07-11 17:14 | PT.OTN ---
Current Diagnoses Stiffness of right hip, not elsewhere classified (07/11/24) Stiffness of left hip, not elsewhere classified (07/11/24) Low back pain, unspecified (07/11/24) Other abnormalities of gait and mobility (07/11/24) Weakness (07/11/24) Physical Therapy Treatment Note PT-OP-A Visit Information Start: 06/16/24 10:44 Freq: Status: Active Protocol: Document 07/11/24 13:12 NBM (Rec: 07/11/24 13:59 NBM [id number]) Out-Patient Physical Therapy Visit Information Visit Information Visit Type Treatment Note Visit Note 24 visits Possible D/C next visit. Visit Start Time 13:10 Visit Stop Time 13:55 Visit Number 01/11 Number of BRIM ROUNDER Visits 1 Evaluation Information Evaluation Date 06/16/24 Precautions Precautions 3rd trimester of - minimize time in supine and monitor for symptoms of SOB, no modalities except tape, use pillow PT-OP-B Current Condition Start: 06/16/24 10:44 Freq: Status: Active Protocol: Document 06/16/24 10:45 NM (Rec: 06/16/24 11:34 NM [id number]) Current Condition History of Current Condition History of Current Condition Pt is in her 3rd trimester, 28 -29 weeks. She is having sciatic type pain B but R>L. She has hx of lower back pain, reports that it is very debilitating. She reports that her pain flares intermittently, states not as active as she should be, partially due to pain and also due to fatigue. 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 This is her first , planning natural . Her back has been bothering her last month and half. Recently switched out mattresses to a firmer mattress, using a pillow. Pt reports shooting sharp pain, BLE to mid thighs; no numbness/tingling. Baby is sitting low, 91st percentile. Pt reports pubic symphysis, sit bone pain. Hx of self manipulation, chiropractor; has not been doing since PT-OP-C Subjective Start: 06/16/24 10:44 Freq: Status: Active Protocol: Document 07/11/24 13:12 NBM (Rec: 07/11/24 13:59 NBM [id number]) OP-PT Subjective Patient Comments Patient Comments Gopal reports R side of back hurts more than Left currently . She is highly stressed as they have to move in six days but do not have a place lined up. She has doing packing and lifting where possible. PT-OP-F Manual Assessment Start: 06/16/24 10:44 Freq: Status: Active Protocol: Document 06/16/24 10:45 NM (Rec: 06/16/24 14:29 NM [id number]) Manual Assessments Soft Tissue Assessment Soft Tissue Mobility Assessment Increased restrictions of hip flexors, R hamstring length Joint Mobility Assessment Joint Mobility Assessment Hypermobility of SIJ, hypermobility of lumbar spine Decreased hip mobility R>L PT-OP-G Mobility & Gait Start: 06/16/24 10:44 Freq: Status: Active Protocol: Document 06/16/24 10:45 NM (Rec: 06/16/24 14:29 NM [id number]) OP Gait Assessment Gait Distance (Feet) 150 Comments Gait Comments Demos wide based gait, forward trunk posture and forward COG PT-OP-J Posture/Palpation/Skin Start: 06/16/24 10:44 Freq: Status: Active Protocol: Document 06/16/24 10:45 NM (Rec: 06/16/24 15:57 NM [id number]) Posture Evaluation Position Standing Head/C-Spine Posture Forward Head L-Spine Posture Increased Lordosis Shoulder Posture (L) Rounded,(R) Rounded Pelvis Posture Anteriorly Tilted Hip Posture (L) Externally Rotated,(R) Externally Rotated Comments Posture Comments B knee hyperextension forward center of mass Palpation Assessment Location hips Palpation Details Mild tenderness along pubic symphysis especially toward L side, does not feel deviated Mild glute tenderness R>L, R hamstring No hip flexor tenderness but tight lumbar spine Palpation Details Tenderness and tightness along paraspinals No tenderness along spinous processes, coccyx Tenderness along B SIJ R>L, R ischial tuberosity PT-OP-K Range of Motion Start: 06/16/24 10:44 Freq: Status: Active Protocol: Document 06/16/24 10:45 NM (Rec: 06/16/24 11:34 NM [id number]) Lumbar Spine Range of Motion Lumbar Spine Active Percentage Testing Position Standing Flexion 90 Extension 25 Rotation Left 100 Rotation Right 100 Lateral Flexion Left 100 Lateral Flexion Right 100 Comments pain with flex, ext, rotation R>L Hip Goniometric Range of Motion Hip Right Internal Rotation 35 External Rotation 30 Comments pain with IR limited HS length Left Internal Rotation 35 External Rotation 35 PT-OP-L Special Tests Start: 06/16/24 10:44 Freq: Status: Active Protocol: Document 06/16/24 10:45 NM (Rec: 06/16/24 11:34 NM [id number]) Special Tests Lumbar Spine Special Tests Straight Leg Raise Test Results + Comments B Slump Test Results + Comments R Prone Instability Test Test Results + Comments improved with stabilization PT-OP-M Strength Start: 06/16/24 10:44 Freq: Status: Active Protocol: Document 06/16/24 10:45 NM (Rec: 06/16/24 11:34 NM [id number]) Trunk Strength Trunk Manual Muscle Testing Comments TrA activation present but challenging to maintain Hip Strength Hip Manual Muscle Testing Right Flexion (L2) 3+ Fair+ Extension (S1) 4- Good- Abduction 4- Good- Adduction 4- Good- External Rotation 3+ Fair+ Internal Rotation 3+ Fair+ Comments pain with flex, IR, add, abd Left Flexion (L2) 4- Good- Extension (S1) 3+ Fair+ Abduction 4- Good- Adduction 3+ Fair+ External Rotation 4- Good- Internal Rotation 4- Good- Comments min pain IR Knee Strength Knee Manual Muscle Testing Right Flexion (S2) 4 Good Extension (L3) 4 Good Left Flexion (S2) 4 Good Extension (L3) 4 Good PT-OP-Q Treatments Start: 06/16/24 10:44 Freq: Status: Active Protocol: Document 07/11/24 13:12 NBM (Rec: 07/11/24 13:59 NBM [id number]) Therapeutic Exercises Sitting Exercises mauritian ball Sitting Exercise Name 1. 1. hip circles 2. TrA activation. Side bilateral Equipment Used 65cm green ball Comments cued form, breathing; increased time spent on TrA activation Standing Exercises QL stretch Standing Exercise Name doorway Side bilateral Reps/Minutes 45 ea Comments positive feedback response, cues for painfree range and positioning Manual Therapy Treatment Consent Patient gave verbal consent for manual Yes treatment Soft Tissue Mobilization hips Body Location glutes, HS, calf Mobilization Type Rolling,Strumming,Sustained Pressure Intensity/Depth Superficial Body Position Prone Comments Positioned on pillow . Superficial only. Distal > proximal. R>L tension noted to proximal R hamstrings. lumbar spine Body Location R paraspinals, R QL Mobilization Type Rolling,Strumming,Other Intensity/Depth Superficial Body Position Prone Comments Positioned on pillow . Superficial only. Increased tightness along paraspinals R> L. Gentle manual stretch to R QL 30x2 w/ positive feedback response. Taping lumbar spine-SIJ Body Location SIJ Type of Tape Kinesio Tape Skin Inspection intact, clear Comments 2 I strips, making X across SIJ/low back, no stretch provided. Previous tape removed. Educated to remove in 3-5 days or immediately if skin irritation/rash occurs. PT-OP-T Assessment and Plan Start: 06/16/24 10:44 Freq: Status: Active Protocol: Document 07/11/24 13:12 NBM (Rec: 07/11/24 13:59 NBM [id number]) Physical Therapy Assessment Goals Three Impairment not performing HEP Short Term Goal (STG) Pt will be educated on HEP for symptom management 06/18/24: HEP initiated STG Duration 2 weeks MET Die Cut Operator Goal (LTG) Pt will be IND with HEP for symptom management at least 3x /wk 07/07/24: pt performing HEP daily w/ improved symptom management LTG Duration 6 weeks MET Two Impairment pain with lifting, ADLs Short Term Goal (STG) Pt will be educated on activity modification and postural modification to improve pain management during remainder of 06/18/24: handout provided; education initiated posture and activity modification STG Duration 3 weeks MET Die Cut Operator Goal (LTG) Pt will be educated and be able to demonstrate lifting/ carrying at least 5 reps/20 ft carseat or similar object for carryover following 07/07/24: initiated lifting mechanics for baby carrier, carrying baby LTG Duration 6 weeks PROGRESSING 07/07 One Impairment limited TrA, hip strength Short Term Goal (STG) Pt will be able to demonstrate TrA activation at least 5/10 reps in order to demonstrate improved core stabilization for pain management and pelvic floor control 07/07/24: able to perform quadruped TrA activation 5 reps, then carryover for lifting simulated baby carrier STG Duration 4 weeks MET 07/07 Assessment Summary Assessment Possible discharge next visit; pt intends to return to PT for pelvic floor therapy. Treatment focus today on verbal review of goals and lifting mechanics in preparation for possible discharge next visit, and manual therapy to address increased pain today. SI joint kinesiotaping reapplied today as pt does not yet have SI belt. Gopal presents with 4-5 /10 R lumbar pain and palpable tension which improve with manual therapy. R Quadratus lumborum m. is also identified during STM as very painful 10 /10 with light superficial touch; pt is able to tolerate light STM to R QL w/ arm positioned in adduction and reports relief with manual QL stretch. Added to HEP: QL doorway stetch - HO declined. Physical Therapy Plan Frequency and Duration Frequency of Treatment 2x/Week Duration of treatment (weeks) 6 Plan of Care Start Date 06/16/24 Plan of Care End Date 08/01/24 Therapeutic Interventions Therapeutic Interventions Gait Training,Home Exercise Program,Joint Mobilizations, Manual Therapy,Neuromuscular Re-education,Orthotic/ Prosthetic Management,Patient/ Caregiver Education,Self-Care/ Home Management,Soft Tissue Mobilization,Taping, Therapeutic Activities, Therapeutic Exercises Other Therapeutic Interventions no modalities Next Visit Focus/Plan Next Note Type Treatment Note Next Visit Plan Possible D/C. POC: Fit SIJ belt when arrive. Tape X I strip support near SIJ. Progress quad vs standing hip strengthening with band. Cont body mechanics with lifting and carrying. Manual tx as needed
--- NOTE | 2024-07-14 11:54 | PT.OTN ---
Current Diagnoses Stiffness of right hip, not elsewhere classified (07/14/24) Stiffness of left hip, not elsewhere classified (07/14/24) Low back pain, unspecified (07/14/24) Other abnormalities of gait and mobility (07/14/24) Weakness (07/14/24) Physical Therapy Treatment Note PT-OP-A Visit Information Start: 06/16/24 10:44 Freq: Status: Active Protocol: Document 07/14/24 10:43 NM (Rec: 07/14/24 11:53 NM [id number]) Out-Patient Physical Therapy Visit Information Visit Information Visit Type Discharge Summary Visit Note 24 visits Visit Start Time 10:47 Visit Stop Time 11:33 Visit Number 02/11 Evaluation Information Evaluation Date 06/16/24 Precautions Precautions 3rd trimester of - minimize time in supine and monitor for symptoms of SOB, no modalities except tape, use pillow PT-OP-B Current Condition Start: 06/16/24 10:44 Freq: Status: Active Protocol: Document 06/16/24 10:45 NM (Rec: 06/16/24 11:34 NM [id number]) Current Condition History of Current Condition History of Current Condition Pt is in her 3rd trimester, 28 -29 weeks. She is having sciatic type pain B but R>L. She has hx of lower back pain, reports that it is very debilitating. She reports that her pain flares intermittently, states not as active as she should be, partially due to pain and also due to fatigue. 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 This is her first , planning natural . Her back has been bothering her last month and half. Recently switched out mattresses to a firmer mattress, using a pillow. Pt reports shooting sharp pain, BLE to mid thighs; no numbness/tingling. Baby is sitting low, 91st percentile. Pt reports pubic symphysis, sit bone pain. Hx of self manipulation, chiropractor; has not been doing since PT-OP-C Subjective Start: 06/16/24 10:44 Freq: Status: Active Protocol: Document 07/14/24 10:43 NM (Rec: 07/14/24 11:53 NM [id number]) OP-PT Subjective Patient Comments Patient Comments Pt reports that she is still very stressed, which is increasing tension in her low back since they have to move this week but do not have a place to move yet. Pt's partner has been doing as much pakcing/lifting as possible. Pt reports overall has been doing better, is focusing on breathwork and maintaining form especially to decrease postural extension and to promote better gluteal activation. Pt reports that she is having less pain overall in BLE but still has pubic pain especially lightning crotch and low back pain; however, reports lessened PT-OP-F Manual Assessment Start: 06/16/24 10:44 Freq: Status: Active Protocol: Document 06/16/24 10:45 NM (Rec: 06/16/24 14:29 NM [id number]) Manual Assessments Soft Tissue Assessment Soft Tissue Mobility Assessment Increased restrictions of hip flexors, R hamstring length Joint Mobility Assessment Joint Mobility Assessment Hypermobility of SIJ, hypermobility of lumbar spine Decreased hip mobility R>L PT-OP-G Mobility & Gait Start: 06/16/24 10:44 Freq: Status: Active Protocol: Document 06/16/24 10:45 NM (Rec: 06/16/24 14:29 NM [id number]) OP Gait Assessment Gait Distance (Feet) 150 Comments Gait Comments Demos wide based gait, forward trunk posture and forward COG PT-OP-J Posture/Palpation/Skin Start: 06/16/24 10:44 Freq: Status: Active Protocol: Document 06/16/24 10:45 NM (Rec: 06/16/24 15:57 NM [id number]) Posture Evaluation Position Standing Head/C-Spine Posture Forward Head L-Spine Posture Increased Lordosis Shoulder Posture (L) Rounded,(R) Rounded Pelvis Posture Anteriorly Tilted Hip Posture (L) Externally Rotated,(R) Externally Rotated Comments Posture Comments B knee hyperextension forward center of mass Palpation Assessment Location hips Palpation Details Mild tenderness along pubic symphysis especially toward L side, does not feel deviated Mild glute tenderness R>L, R hamstring No hip flexor tenderness but tight lumbar spine Palpation Details Tenderness and tightness along paraspinals No tenderness along spinous processes, coccyx Tenderness along B SIJ R>L, R ischial tuberosity PT-OP-K Range of Motion Start: 06/16/24 10:44 Freq: Status: Active Protocol: Document 06/16/24 10:45 NM (Rec: 06/16/24 11:34 NM [id number]) Lumbar Spine Range of Motion Lumbar Spine Active Percentage Testing Position Standing Flexion 90 Extension 25 Rotation Left 100 Rotation Right 100 Lateral Flexion Left 100 Lateral Flexion Right 100 Comments pain with flex, ext, rotation R>L Hip Goniometric Range of Motion Hip Right Internal Rotation 35 External Rotation 30 Comments pain with IR limited HS length Left Internal Rotation 35 External Rotation 35 PT-OP-L Special Tests Start: 06/16/24 10:44 Freq: Status: Active Protocol: Document 06/16/24 10:45 NM (Rec: 06/16/24 11:34 NM [id number]) Special Tests Lumbar Spine Special Tests Straight Leg Raise Test Results + Comments B Slump Test Results + Comments R Prone Instability Test Test Results + Comments improved with stabilization PT-OP-M Strength Start: 06/16/24 10:44 Freq: Status: Active Protocol: Document 06/16/24 10:45 NM (Rec: 06/16/24 11:34 NM [id number]) Trunk Strength Trunk Manual Muscle Testing Comments TrA activation present but challenging to maintain Hip Strength Hip Manual Muscle Testing Right Flexion (L2) 3+ Fair+ Extension (S1) 4- Good- Abduction 4- Good- Adduction 4- Good- External Rotation 3+ Fair+ Internal Rotation 3+ Fair+ Comments pain with flex, IR, add, abd Left Flexion (L2) 4- Good- Extension (S1) 3+ Fair+ Abduction 4- Good- Adduction 3+ Fair+ External Rotation 4- Good- Internal Rotation 4- Good- Comments min pain IR Knee Strength Knee Manual Muscle Testing Right Flexion (S2) 4 Good Extension (L3) 4 Good Left Flexion (S2) 4 Good Extension (L3) 4 Good PT-OP-Q Treatments Start: 06/16/24 10:44 Freq: Status: Active Protocol: Document 07/14/24 10:43 NM (Rec: 07/14/24 11:53 NM [id number]) Therapeutic Exercises Other Exercises child pose Other Exercise Name with trunk support on ball, hip IR Equipment Used 65 cm palauan ball Reps/Minutes 10x10 hold quadruped Other Exercise Name 1. firehydrants, 2.hip ext, 3. hip IR c/ band, 4.hip swivels , 5. catcamel Resistance level 1 band for hip IR, c. roll between legs Equipment Used initially for cueing to limit spine rotation Reps/Minutes 15 ea (increased time needed) Comments cued breathwork, form, TrA; improved TrA and breathwork Therapeutic Activity Therapeutic Activity body mechanics Comments Lifting from floor and carrying simulated baby carrier x 50 ft, several reps minimal cueing for form prn but overall, pt maintains good body mechanics and needs limited cueing Manual Therapy Treatment Consent Patient gave verbal consent for manual Yes treatment Soft Tissue Mobilization hips Body Location glutes, HS, calf, OI Mobilization Type Rolling,Strumming,Sustained Pressure Intensity/Depth Superficial Body Position Prone Comments Positioned on pillow . Superficial only. Mild tenderness and tightness of hamstrings and OI, reduced with manual therapy lumbar spine Body Location R paraspinals, R QL Mobilization Type Rolling,Strumming,Sustained Pressure Intensity/Depth Superficial Body Position Prone Comments Positioned on pillow . Superficial only. Increased tightness along paraspinals R> L especially along QL. Less tenderness and improved pain management post manual treatment Taping lumbar spine-SIJ Body Location SIJ Type of Tape Kinesio Tape Skin Inspection intact, clear Comments 2 I strips, making X across SIJ/low back, no stretch provided. Previous tape removed. Educated to remove in 3-5 days or immediately if skin irritation/rash occurs. PT-OP-T Assessment and Plan Start: 06/16/24 10:44 Freq: Status: Active Protocol: Document 07/14/24 10:43 NM (Rec: 07/14/24 11:53 NM [id number]) Physical Therapy Assessment Goals Three Impairment not performing HEP Short Term Goal (STG) Pt will be educated on HEP for symptom management 06/18/24: HEP initiated STG Duration 2 weeks MET [facility] Goal (LTG) Pt will be IND with HEP for symptom management at least 3x /wk 07/07/24: pt performing HEP daily w/ improved symptom management LTG Duration 6 weeks MET Two Impairment pain with lifting, ADLs Short Term Goal (STG) Pt will be educated on activity modification and postural modification to improve pain management during remainder of 06/18/24: handout provided; education initiated posture and activity modification STG Duration 3 weeks MET [facility] Goal (LTG) Pt will be educated and be able to demonstrate lifting/ carrying at least 5 reps/20 ft carseat or similar object for carryover following 07/07/24: initiated lifting mechanics for baby carrier, carrying baby 07/14/24: pt able to lift and carry simulated baby carrier with good core bracing, gluteal activation and breathwork while maintaining safe body mechanics, several reps LTG Duration 6 weeks MET One Impairment limited TrA, hip strength Short Term Goal (STG) Pt will be able to demonstrate TrA activation at least 5/10 reps in order to demonstrate improved core stabilization for pain management and pelvic floor control 07/07/24: able to perform quadruped TrA activation 5 reps, then carryover for lifting simulated baby carrier STG Duration 4 weeks MET 07/07 Assessment Summary Assessment Pt tolerated session well, demos improved form with all lifting and carrying activities to simulate baby carrier usage. Cueing only for exhaling with exertion but educated pt that does not need to stay down on floor in half kneel or squat to breathe. Pt able to progress to resisted hip strengthening in quadruped , demos good response to increased reps or resistance. Minimal cues needed for form. Manual treatment to focus on pain management, still most relief with taping to SIJ as pt unable to affort SIJ belt at this time; educated pt on execution of tape at home. Physical Therapy Plan Frequency and Duration Frequency of Treatment 2x/Week Duration of treatment (weeks) 6 Plan of Care Start Date 06/16/24 Plan of Care End Date 08/01/24 Therapeutic Interventions Therapeutic Interventions Gait Training,Home Exercise Program,Joint Mobilizations, Manual Therapy,Neuromuscular Re-education,Orthotic/ Prosthetic Management,Patient/ Caregiver Education,Self-Care/ Home Management,Soft Tissue Mobilization,Taping, Therapeutic Activities, Therapeutic Exercises Other Therapeutic Interventions no modalities Other Referrals/Consults Referrals/Consults Recommended Educated on and recommend pelvic floor PT following Discharge Physical Therapy Discharge Reasons Goals Met Discharge Comments All goals met. Pt is currently 33 weeks . Compliant with HEP. Reports improvents overall in pain management and ability to perform ADLs/IADLs , in addition to future lifting/carrying as baby arrives. Pt and PT discussed discharge as pt is moving and moving toward term in . PT and pt in agreement. Provided with maintenance program with clear education to stop after until cleared for exercise and to stop prior to if worsening symptoms. Pt verbalizes understanding Next Visit Focus/Plan Next Note Type Discharge Summary Next Visit Plan discharge from PT
== END ==
LOC: PHYS 06-16 10:33
PROVIDERS: Family Provider Family Medicine; PCP Family Medicine; Referring Provider Family Medicine; Visit Provider Family Medicine
DX: M54.50 Low back pain, unspecified (principal); R53.1 Weakness; M25.652 Stiffness of left hip, not elsewhere classified; M25.651 Stiffness of right hip, not elsewhere classified; R26.89 Other abnormalities of gait and mobility
CPT/HCPCS: 97110; 97140; 97162; 97530; 97535

== ENCOUNTER 2024-07-20 10:04 | Outpatient (CLI) | payer OTHER, SELFPAY ==
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
== END 2024-07-20 10:50 | disposition home or self-care (01) ==
LOC: LABOR 10:07 → OB 07-22 10:22
PROVIDERS: Family Provider Family Medicine; PCP Family Medicine; Referring Provider Family Medicine; Visit Provider Family Medicine
DX: O36.8130 Decreased fetal movements, third trimester, not applicable or unspecified (principal); Z3A.33 33 weeks gestation of pregnancy
CPT/HCPCS: 59025; G0378; G0379

== ENCOUNTER → 2024-07-30 13:21 | Outpatient (CLI) | payer OTHER, SELFPAY ==
--- NOTE | 2024-07-30 13:22 | DI.US.S_ITS ---
PROCEDURE: US OB LIMITED INDICATIONS: growth OUTSIDE/PRIOR DATING DATA: LMP-based estimated date of delivery (LESLY): 08/27/2024. First dating scan (date and location): 01/28/2024. Estimated date of delivery (LESLY) from first dating scan: 09/02/2024. The calculations are made using the ultrasound LESLY of 09/02/2024. TECHNIQUE: Real-time scanning was performed of the fetus, with image documentation and biometric measurements. Endovaginal scanning: Not performed COMPARISON: [facility], US OB LIMITED, 05/14/2024, 11:45. FINDINGS: General: A single living intrauterine gestation is present. Presentation: Vertex. Placenta: Placental position is anterior. Amniotic fluid index: 11.0 cm, normal range is 5-24 cm. Single deepest vertical pocket is 5.0 cm. heart rate: 145 beats per minute. Maternal cervical canal: Not well seen. biometrics: Biparietal diameter: 9 centimeters, 36 weeks 4 days Head circumference: 31.9 centimeters, 36 weeks 0 days Abdominal circumference: 32.9 centimeters, 36 weeks 5 days Femur length: 7.0 centimeters, 35 weeks 5 days Clinically estimated gestational age: 35 weeks 1 day Composite gestational age from present scan: 36 weeks 2 days Estimated weight and percentile: 2925 grams, 81 percent Other: Not applicable. IMPRESSION: 1. Single live intrauterine consistent with 36 weeks and 2 days. 2. Normal interval growth with estimated weight in the 81st percentile. Abdominal circumference is in the 92nd percentile. We strive to produce accurate, complete, and clear reports of imaging services. To assist us in improving patient care, this report was composed using standard report templates and voice recognition software. Therefore, it may contain abnormal punctuation, insertions and/or omissions. Occasional wrong-word or sound-alike substitutions may occur. Though we review the report and make efforts to correct it, we do recommend that the report be read carefully in proper context to recognize any text inaccuracies. Dictated by: Marino Weiss M.D. on 07/30/2024 at 16:50 Approved by: Marino Weiss M.D. on 07/30/2024 at 16:52
== END ==
PROVIDERS: Family Provider Family Medicine; PCP Family Medicine; Referring Provider Family Medicine; Visit Provider Family Medicine
DX: Z34.03 Encounter for supervision of normal first pregnancy, third trimester (principal); Z3A.36 36 weeks gestation of pregnancy
CPT/HCPCS: 76815

== ENCOUNTER → 2024-08-04 10:43 | Outpatient (CLI) | payer OTHER, SELFPAY ==
[2024-08-05 11:01] LABS: Strep Grp B PCR POS for Grp B Strep
== END ==
PROVIDERS: Family Provider Family Medicine; PCP Family Medicine; Visit Provider Family Medicine
DX: Z34.00 Encounter for supervision of normal first pregnancy, unspecified trimester (principal)
CPT/HCPCS: 87653

== ENCOUNTER 2024-09-01 08:11 | Inpatient (IN) | payer OTHER, SELFPAY ==
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
[2024-09-01 09:34] LABS: Add Manual Diff / Slide Review NO; Basophils Absolute Auto 0 /uL (0-100); Basophils Percent Auto 0.2 % (0-2); Eosinophils Absolute Auto 200 /uL (0-450); Eosinophils Percent Auto 1.9 % (2-4); Hematocrit 32.9 % (36-46); Hemoglobin 10.7 g/dL (12.0-16.0); Lymphocytes Absolute Auto 1900 /uL (1100-4500); Lymphocytes Percent Auto 18.4 % (25-40); Mean Corpuscular HGB Conc 32.5 % (30-36); Monocytes Absolute Auto 1000 /uL (0-900); Monocytes Percent Auto 9.2 % (3-14); Neutrophils Absolute Auto 7300 /uL (1500-7000); Neutrophils Percent Auto 70.3 % (50-75); Platelet Count 278 X10^3/uL (150-400); Red Blood Cell Count 4.27 X10^6/uL (4.0-5.2); Red Cell Distribution Width 16.4 % (11.6-14.8); White Blood Cell Count 10.3 X10^3/uL (4.5-11.0)
[2024-09-01] MEDS: AMPICILLIN 2,000 MG in SODIUM CHLORIDE 0.9% 100 ML 200 MG IV (10:02)
[2024-09-01] MEDS: LACTATED RINGERS 1,000 ML 100 ML IV (10:04)
[2024-09-01 10:15] VITALS: BP 119/67
[2024-09-01] MEDS: AMPICILLIN 1,000 MG in SODIUM CHLORIDE 0.9% 100 ML 200 MG IV ×3 (14:19→22:36)
[2024-09-01] MEDS: LIDOCAINE 2% (GLYDO) 6 ML GEL TOP (15:35)
--- NOTE | 2024-09-01 16:47 | PM.AN.REGBLK ---
[facility]ional [facility] <Cecilio Guzmán, DO - Last Filed: 09/02/24 10:01> Pre-procedure Procedure: Continuous Lumbar Epidural for L&D Attending OB provider: Bibiana Chaudhary PMH/MANGO narrative: term labor, no obstetric complications, h/o anxiety and depression, previously on escitalopram. BMI 34.5. ASA Class: II Labs: Hct 32.9 % (36-46) L 09/01/24 09:19 Plt Count 278 X10^3/uL (150-400) 09/01/24 09:19 Medications: Current Medications Generic Name Dose Route Start Last Admin Trade Name Freq PRN Reason Stop Dose Admin Calcium Carbonate 1,000 mg 09/01/24 09:19 Calcium Carbonate 500 Mg Tab PO Q2HR PRN Dyspepsia Carboprost Tromethamine 250 mcg 09/01/24 09:19 Carboprost 250 Mcg/Ml Ampul IM Q90M PRN Bleeding Diphenhydramine HCl 25 mg 09/01/24 14:27 Diphenhydramine 50 Mg/Ml Vial IV Q10M PRN Pruritis Ephedrine Sulfate 10 mg 09/01/24 14:27 Ephedrine 50 Mg/Ml Vial IV Q5M PRN Blood pressure decrease more than 20% of baseline. Lactated Ringer's 1,000 mls @ 100 mls/hr 09/01/24 09:30 09/01/24 10:04 Lactated Ringers IV 09/01/24 19:29 100 mls/hr CONT LORENA Administration Oxytocin/Lactated Ringer's 30 unit in 500 mls @ 200 mls/hr 09/01/24 09:19 Oxytocin Premix IV CONT PRN Bleeding Protocol Tranexamic Acid 1,000 mg/ 100 mls @ 600 mls/hr 09/01/24 09:19 Sodium Chloride IV NOW PRN Bleeding Ampicillin Sodium 1,000 mg/ 100 mls @ 200 mls/hr 09/01/24 13:30 09/01/24 14:19 Sodium Chloride IV 200 mls/hr Q4H LORENA Administration FENT 2MCG/ML BUPIV 0.125% EPI 200 mcg in 100 mls @ 6 mls/hr 09/01/24 14:30 Fentanyl/Bupiv/Ns 2mcg/Ml - 0.125% EPIDURAL CONT LORENA Lidocaine HCl 20 ml 09/01/24 09:19 Lidocaine 1% 20 Ml INJ INTRA-OP PRN Post Delivery Methylergonovine Maleate 0.2 mg 09/01/24 09:19 Methylergonovine 0.2 Mg Tablet PO Q6HR PRN Heavy Bleeding Methylergonovine Maleate 0.2 mg 09/01/24 09:19 Methylergonovine 0.2 Mg/Ml Vial IM NOW PRN Bleeding Mineral Oil 30 ml 09/01/24 09:19 Mineral Oil 30 Ml Udc TOP PRN PRN Version Misoprostol 800 mcg 09/01/24 09:19 Misoprostol 200 Mcg Tablet DC NOW PRN Bleeding Misoprostol 400 mcg 09/01/24 09:19 Misoprostol 200 Mcg Tablet SL NOW PRN Bleeding Nalbuphine HCl 2.5 mg 09/01/24 14:27 Nalbuphine 20 Mg/Ml Ampul IV Q10M PRN Pruritis Naloxone HCl 0.2 mg 09/01/24 09:19 Naloxone 0.4 Mg/Ml Vial IV Q2MIN PRN Opiate Reversal Ondansetron HCl 4 mg 09/01/24 09:19 Ondansetron 4 Mg/2 Ml Inj IV Q4HR PRN Nausea And Vomiting Oxytocin 10 unit 09/01/24 09:19 Oxytocin 10 Unit/Ml Vial IM NOW PRN Bleeding Allergies: Allergies Allergy/AdvReac Type Severity Reaction Status Date / Time avocado Allergy Mild ITCHING Verified 08/18/24 10:33 strawberry Allergy Mild ITCHING Verified 08/18/24 10:33 honey AdvReac Intermediate Abdominal Verified 08/18/24 10:33 Pain Procedure Insertion date: 09/01/24 Insertion time: 16:23 Prep/Local: betadine x3 and 1% lidocaine Interspace: L3-4 Patient position: sitting Needle: 18 gauge DAXKOtead (CSE: 27g Pencan through Hustead, clear CSF, 1mL 0.25% bupiv MPF) Loss of resistance with: saline MONSERRAT at (cm): 5 Catheter placed at SKIN (cm): 11 Catheter in SPACE (cm): 6 Insertion: No CSF, No Blood, No Paresthesia with insertion, No Paresthesia with injection and No Test dose reaction Initial Medications TEST DOSE time: 16:30 TEST DOSE: 1.5% lidocaine with epinephrine 1:200k (mL): 3 BOLUS DOSE time: 16:40 BOLUS DOSE (mL): 4 BOLUS DOSE med: other (infusate) Infusion INFUSION: 0.125% bupivacaine and with fentanyl 2 mcg/mL Initial rate (mL/hr): 10 Post-procedure Anesthesia date START: 09/01/24 Anesthesia time START: 16:20 Anesthesia date END: 09/02/24 Anesthesia time END: 09:17 Post-procedure Anesthesia Assessment: Yes CV function: HR/BP stable, Yes Resp function: RR/sat/airway adequate, Yes Post-op hydration adequate, Yes Pain control adequate, Yes Nausea & vomiting absent, Yes Temperature > 36 C, Yes Mental status appropriate and No Anesthesia complications <Tommy Smith, PRECISION STRUCTURAL METAL FITTER - Last Filed: 09/02/24 00:35> Infusion Subsequent interventions: 2350: Called to patient bedside for increased labor pain on R. side, bolus dose of 50mcg fentanyl, 5ml 0.25% bupivacaine, 10mcg precedex given. PCEA continuous rate increased to 12ml/hr. Labor pain controlled on subsequent check.
[2024-09-01] MEDS: ACETAMINOPHEN 325 MG TABLET 650 MG PO (18:33)
[2024-09-01] MEDS: OXYTOCIN PREMIX 30 UNIT/500 ML PLAST..BAG IV (18:46)
[2024-09-01] MEDS: FENT 2MCG/ML BUPIV 0.125% EPI 200 MCG/100 ML PLAST..BAG 10 MCG EPIDURAL (20:39)
[2024-09-02] MEDS: AMPICILLIN 1,000 MG in SODIUM CHLORIDE 0.9% 100 ML 200 MG IV ×2 (02:42→06:33)
[2024-09-02] MEDS: ONDANSETRON 4 MG/2 ML INJ IV (02:46)
[2024-09-02] MEDS: CALCIUM CARBONATE 500 MG TAB 1000 MG PO (03:06)
--- NOTE | 2024-09-02 03:09 | PM.OBPNLAB ---
Date/Time Date Patient Seen: 09/02/24 Time Patient Seen: 03:09 Pain Control Pain control: epidural Pelvic Exam Dilation (cm): 8 Effacement (%): 100 station: -1 Amniotic membrane status: Ruptured Contractions Pitocin rate (mU/min): 0 Contraction frequency (min): 5 Status status: Category l Heart Rate Baseline: 130 Monitor Accelerations: Present Monitor Decelerations: Absent Monitor Variability: Moderate Assessment and Plan Comments: Pt is a 29yo at 39w6d here with regular painful contractions, in early labor. GBS positive, Rh positive. Pitocin initiated due to spacing of contractions after receiving epidural. Titrated to max of 6mU with good cervical change, however due to recurrent variable decels was discontinued. Off pitocin now with Category I tracing. AROM performed with clear fluid present. - Expectant management, anticipate - FHT reassuring overall, will continue to monitor closely - Continue Ampicillin prophylaxis for GBS prophylaxis - Epidural for pain control in place and functioning
[2024-09-02] MEDS: FENT 2MCG/ML BUPIV 0.125% EPI 200 MCG/100 ML PLAST..BAG 10 MCG EPIDURAL (03:50)
[2024-09-02] MEDS: ACETAMINOPHEN 325 MG TABLET 650 MG PO ×3 (07:03→21:08)
[2024-09-02] MEDS: KETOROLAC 30 MG/ML VIAL IV (10:02)
[2024-09-02] MEDS: DERMOPLAST SPRAY 20% 60 ML 1 SPRAY TOP (11:44)
[2024-09-02] MEDS: WITCH HAZEL/GLYCERIN PADS 1 EACH TOP (11:44)
--- NOTE | 2024-09-02 12:39 | PM.OBPRVD ---
Labor & Delivery Delivery date: 09/02/24 Delivery Time: 09:07 Cervical ripening method: none Delivery augmentation: rupture of membranes and pitocin Delivery monitor: external FHT and external uterine Route of delivery: vacuum extraction Indication for instrumentation: nonreassuring FHR tracing Episiotomy description: None L&D Laceration Description: Perineal - 2nd Degree Quantitative Blood Loss: 300 Anesthesia Type: Epidural Complications: None Narrative: PROCEDURE: at 39w6d presented in early active labor and was admitted to Labor and Delivery. The patient progressed through the 1st stage over 8 hours. AROM occured at 3:01 with clear fluid. Pain was controlled with an epidural. She was initiated on pitocin due to significant spacing of her contractions. The patient progressed through the 2nd stage over 2 hours. Due to a prolonged labor course with long latent phase of labor, the pt was extremely exhausted. She was losing pushing strength and after discussion the decision was made to proceed with vacuum-assisted vaginal delivery. Patient was evaluated and noted to have adequate pain control. Patient counseled on risks/benefits/alternatives of vacuum assisted delivery. Risks were discussed and they included but were not limited to a need for an episiotomy, pressure caro on the baby, lacerations to the baby's scalp/face, serious damage including skull fracture, the need to proceed with an abdominal procedure, , paralysis of the baby's arms and/or legs, neurological impairment of the baby. Alternatives would include CS or further observation depending on status. Questions were answered and the patient verbalized an understanding and decided to proceed. Cervix completely dilated and maternal bladder emptied. Maternal pelvis was noted to be adequate. Vertex presentation in the OA position and +2 station. Moulding present, Caput present Vacuum cup of the Kiwi OmniCup applied to the flexion point without difficulty and during contractions, pressure applied between 400-600 mmHg as indicated in the green zone of the pressure gauge. Infant delivered after 4 contractions with 1 pop-off over an intact perineum. Total duration of application of the vacuum was 13 minutes. The anterior shoulder and remainder of the infant was delivered without difficulty at 9:07. APGARs 8/9. The cord was cut and clamped after it stopped pulsating. The placenta delivered with gentle cord traction, and appeared complete. The perineum and vagina were inspected with 2nd degree perineal laceration repaired with 2-O Vicryl in the usual fashion. Needle and sponge counts were correct.? The vagina was inspected and no items were left in situ. Gopal was doing well with Aayush, her and her partner at bedside. PREPROCEDURE DIAGNOSIS: Intrauterine at 40w0d GBS positive RH positive Maternal exhaustion POSTPROCEDURE DIAGNOSIS: Intrauterine at 40w0d, delivered Same as preprocedure Vacuum-assisted vaginal delivery [place] Baby 1: Infant gender: Male Presentation: vertex Position: Left Occiput Anterior Placenta delivery description: Spontaneous Cord Vessel Description: 3 Vessels score (1 min): 8 score (5 min): 9 weight: 8 lb 2.02 oz Plan for aftercare: Routine care
[2024-09-02] MEDS: IBUPROFEN 600 MG TABLET PO (19:29)
[2024-09-03] MEDS: IBUPROFEN 600 MG TABLET PO ×2 (01:35→09:16)
[2024-09-03] MEDS: ACETAMINOPHEN 325 MG TABLET 650 MG PO ×2 (06:18→13:33)
[2024-09-03] MEDS: PRENATAL VIT,CALC/IRON/FOLIC 1 TABLET 1 TAB PO (09:15)
[2024-09-03] MEDS: DOCUSATE 100 MG CAPSULE PO (09:15)
[2024-09-03 09:16] VITALS: TEMP 37.2
[2024-09-03] MEDS: WITCH HAZEL/GLYCERIN PADS 1 EACH TOP (13:35)
[2024-09-03] MEDS: LANOLIN OINT 7 GM 1 APPLIC TOP (13:35)
--- NOTE | 2024-09-03 14:16 | P.DS_ITS ---
Discharge Providers Provider Date of admission: 09/01/24 08:11 Discharge Date: 09/03/24 Primary care physician: Bibiana Chaudhary MD Consults: 09/03/24 10:18 Consult to Plant And Instrument Engineer Routine Comment: Discharge provider: Bibiana Chaudhary MD Summary Hospital Course Date Patient Seen: 09/03/24 Diagnoses: Intrauterine at 40w0d GBS positive RH positive Maternal exhaustion Vacuum-assisted vaginal delivery Hospital Course: The pt presented in early active labor. She received an epidural for pain control. She was initiated on pitocin due to spacing of her contractions. Pitocin was discontinued due to Category II tracing. AROM was performed with clear fluid present. The pt then progressed to complete dilation, however due to protracted early labor was very fatigued. Due to maternal exhaustion and gradually losing pushing strength, the decision was made to proceed with a vacuum-assisted vaginal delivery. The pt delivered a viable baby without complications. A 2nd degree perineal laceration was then repaired. , there were no complications. At the time of discharge she was voiding, ambulating, and passing flatus without difficulty. Her lochia was decreasing appropriately. Her pain was well controlled. She was with good latch. She will f/u in 6 weeks for check. Peripartum Data Infant Delivery Method: Assisted Delivery Laceration Description: Perineal - 2nd Degree Episiotomy description: None Procedures: Vacuum-assisted vaginal delivery complications: none [place] 1: Gender: Male Disposition of : home Time Spent with Patient Time attestation: Total time spent providing and/or coordinating discharge services: Objective Labs 09/01/24 09:19 Exam Vital Signs (past 8 hours): - 09/03/24 09:16 Temperature 98.9 F Narrative Exam Narrative: Gen: NAD, sitting comfortably in bed, appears well CV: RRR, no murmurs Resp: clear to auscultation bilaterally Abd: soft, appropriately tender, fundus firm and below the umbilicus, nondistended Ext: no edema Discharge Plan Discharge Plan Patient Disposition: Home Discharge orders & Medications Prescriptions: Continued vit-ferrous sulfat-FA 27 mg iron- 0.8 mg tablet 1 tab PO 1XD cholecalciferol (vitamin D3) 50 mcg (2,000 unit) capsule 50 mcg PO DAILY calcium carbonate 600 mg calcium (1,500 mg) tablet 600 mg PO DAILY Discontinued pyridoxine (vitamin B6) 100 mg tablet 100 mg PO DAILY No Action ibuprofen 600 mg tablet 600 mg PO Q6HR PRN (Reason: Pain, Mild (1-3)) Qty: 60 0RF docusate sodium 100 mg capsule 100 mg PO DAILY Qty: 30 0RF acetaminophen 325 mg tablet 650 mg PO Q6HR PRN (Reason: Pain, Mild (1-3)) Qty: 60 0RF Follow up/Referrals: Bibiana Chaudhary MD [Primary Care Provider] - 6 Weeks Diet/Activity/Treatments Diet: Diet as Tolerated and Regular Skin/Wound/Dressing Care Report to your healthcare provider any signs of infection, such as:: chills, fever, increased pain and unusual drainage Visit Report/Discharge Packet Instructions: DI for Labor and Delivery, Vaginal Stand Alone Forms: Discharge: Care, Patient Portal/API, Stroke Signs & Symptoms Discharge Data Primary Care Provider: Bibiana Chaudhary Discharges patient from system. Discharge Date/Time: 09/03/24 16:20
[2024-09-03 14:47] VITALS: BP 125/77; PULSE 90; RESP 18; TEMP 37.2
== END 2024-09-03 16:20 | disposition home or self-care (01) | DRG 560 ==
PROVIDERS: Admitting Provider Family Medicine; Family Provider Family Medicine; PCP Family Medicine; Referring Provider Family Medicine; Visit Provider Family Medicine
DX: O99.824 Streptococcus B carrier state complicating childbirth (principal); O76 Abnormality in fetal heart rate and rhythm complicating labor and delivery; Z3A.39 39 weeks gestation of pregnancy; Z37.0 Single live birth; O70.1 Second degree perineal laceration during delivery; O75.81 Maternal exhaustion complicating labor and delivery
CPT/HCPCS: 36415; 59050; 59409; 85025; 86850; 86900; 86901; G0379; J0290; J1885; J2405; J2590; J3010